=== PATIENT | female | born 2000 | race Caucasian/White ===

== ENCOUNTER → 2022-04-18 | Outpatient (CLI) | payer SELFPAY | LOC: LABNPT 15:47 | PROVIDERS: ATTEND Family Medicine | DX: Z34.83 Encounter for supervision of other normal pregnancy, third trimester (principal); Z3A.35 35 weeks gestation of pregnancy | CPT/HCPCS: 87081 ==

== ENCOUNTER 2022-05-21 18:12 | Inpatient (IN) | payer SELFPAY ==
[2022-05-21] VITALS (12 sets, daily range): BP systolic 112–141; BP diastolic 55–82
[~2022-05-21] VITALS: Ht 175 cm; Wt 82.3 kg
[2022-05-21 18:41] LABS: BILIRUBIN,URINE NEGATIVE (NEGATIVE); CLARITY,URINE CLEAR; COLOR,URINE YELLOW; GLUCOSE, URINE (UA) NEGATIVE (NEGATIVE); KETONES,URINE NEGATIVE (NEGATIVE); LEUKOCYTE ESTERASE ,URINE NEGATIVE (NEGATIVE); NITRITE,URINE NEGATIVE (NEGATIVE); PROTEIN,URINE NEGATIVE (NEGATIVE)
[2022-05-21 18:48] LABS: BACTERIA,URINE TRACE /HPF; RBC,URINE RARE /HPF; SQUAMOUS EPITHELIAL CELL,UR 0-2 /HPF; WBC,URINE 0-2 /HPF
[2022-05-21] MEDS ORDERED: AMPICILLIN FOR IV USE 2,000 MG in NS (IVPB) 50 ML IV SCH (18:52)
[2022-05-21] MEDS ORDERED: D5 LR IV SOLUTION 1,000 ML IV ONE (18:52)
[2022-05-21] MEDS ORDERED: D5 LR IV SOLUTION 1,000 ML IV SCH (19:00)
[2022-05-21] MEDS ORDERED: MINERAL OIL 30 ML UDC TOP PRN (19:00)
[2022-05-21 19:37] LABS: BASOPHILS % (AUTO) 0 % (0-10); EOSINOPHILS # (AUTO) 0.1 10^3/uL (0.0-0.3); EOSINOPHILS % (AUTO) 1 % (0-10); HEMATOCRIT 40 % (35-52); LYMPHOCYTES # (AUTO) 1.9 10^3/uL (1.0-4.0); LYMPHOCYTES % (AUTO) 18 % (12-44); MEAN CORPUSCULAR HEMOGLOBIN 32 pg (25-34); MEAN CORPUSCULAR HGB CONC 35 g/dL (32-36); MEAN CORPUSCULAR VOLUME 90 fL (80-99); MEAN PLATELET VOLUME 8.1 fL (9.0-12.2); MONOCYTES % (AUTO) 10 % (0-12); NEUTROPHILS # (AUTO) 7.4 10^3/uL (1.8-7.8); NEUTROPHILS % (AUTO) 71 % (42-75); PLATELET COUNT 200 10^3/uL (130-400); WHITE BLOOD COUNT 10.4 10^3/uL (4.3-11.0)
[2022-05-21] MEDS ORDERED: OXYTOCIN PRE-MIX DRIP 500 ML IV ONE ×2 (20:17→23:11)
[2022-05-21] MEDS ORDERED: LIDOCAINE/EPI 2% 1:200,00 (XYLOCAINE) 10 ML VIAL ONE (20:17)
--- NOTE | 2022-05-21 20:38 | History & Physical-OB ---
OB - Chief Complaint & HPI Date/Time Date of Admission: Date of Admission: May 21, 2022 at 18:54 Date seen by a Provider: May 21, 2022 Time Seen by a Provider: 20:30 Chief Complaint/History OB-Reason for Admission/Chief: Onset of Labor Hx : 1 Hx Para: 0 Expected Date of Delivery: May 21, 2022 Gestational Age in Weeks: 40 Gestational Age in Days: 0 Admission Nurse Assessment Rev: Yes History of Labs GBS Neg Allergies and Home Medications Allergies Coded Allergies: No Known Drug Allergies (Unverified , 05/21/22) Patient Home Medication List Home Medication List Reviewed: Yes OB - History Hx of Present Care: Yes (Dr Abbott thru [address] Wren) Obstetrical Complications: None Medical Complications: None Obstetrical History Hx : 1 Hx Para: 0 Hx Complication: No Patient Past Medical History None Denies Social History/Family History Alcohol Use: Denies Use Recreational Drug Use: No Smoking Cessation: Never smoker Immunizations Influenza Vaccine Up-to-Date: No; Not Current OB - Admission Exam Physical Exam Vitals: Vital Signs 05/21/22 18:28 Temp 36.3 Pulse 70 Resp 20 Pulse Ox 98 O2 Delivery Room Air HEENT: EOMI Heart: Rhythm Normal Lungs: Clear Abdomen: Gravid Extremities: Normal Cervical Dilatation: 7cm (per RN on admission) Effacement: 100% Station: 0 Membranes: Intact Heart Rate: 130's Accelerations: Accelerations Present Decelerations: No Decelerations Short Term Variability: Present 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 (6-25) Contractions on Admission: < 5 Minutes Apart Date/Time Contractions Began;: 05/21/22 around 1100 Intensity: Moderate Labs Laboratory Tests Test 05/21/22 18:20 05/21/22 19:00 Range/Units Urine Color YELLOW Urine Clarity CLEAR Urine pH 7.0 5-9 Urine Specific [place] 1.015 L 1.016-1.022 Urine Protein NEGATIVE NEGATIVE Urine Glucose (UA) NEGATIVE NEGATIVE Urine Ketones NEGATIVE NEGATIVE Urine Nitrite NEGATIVE NEGATIVE Urine Bilirubin NEGATIVE NEGATIVE Urine Urobilinogen 0.2 < = 1.0 MG/DL Urine Leukocyte Esterase NEGATIVE NEGATIVE Urine RBC (Auto) TRACE-I H NEGATIVE Urine RBC RARE /HPF Urine WBC 0-2 /HPF Urine Squamous Epithelial Cells 0-2 /HPF Urine Crystals NONE /LPF Urine Bacteria TRACE /HPF Urine Casts NONE /LPF Urine Mucus NEGATIVE /LPF Urine Culture Indicated CULTURE PENDING White Blood Count 10.4 4.3-11.0 10^3/uL Red Blood Count 4.42 3.80-5.11 10^6/uL Hemoglobin 14.0 11.5-16.0 g/dL Hematocrit 40 35-52 % Mean Corpuscular Volume 90 80-99 fL Mean Corpuscular Hemoglobin 32 25-34 pg Mean Corpuscular Hemoglobin Concent 35 32-36 g/dL Red Cell Distribution Width 12.5 10.0-14.5 % Platelet Count 200 130-400 10^3/uL Mean Platelet Volume 8.1 L 9.0-12.2 fL Immature Granulocyte % (Auto) 0 % Neutrophils (%) (Auto) 71 42-75 % Lymphocytes (%) (Auto) 18 12-44 % Monocytes (%) (Auto) 10 0-12 % Eosinophils (%) (Auto) 1 0-10 % Basophils (%) (Auto) 0 0-10 % Neutrophils # (Auto) 7.4 1.8-7.8 10^3/uL Lymphocytes # (Auto) 1.9 1.0-4.0 10^3/uL Monocytes # (Auto) 1.0 0.0-1.0 10^3/uL Eosinophils # (Auto) 0.1 0.0-0.3 10^3/uL Basophils # (Auto) 0.0 0.0-0.1 10^3/uL Immature Granulocyte # (Auto) 0.0 0.0-0.1 10^3/uL OB - Assessment/Plan/Diagnosis Assessment Assessment: active labor Admission Dx Term Labor Admission Status: Inpatient Order (span 2 midnights) Reason for Inpatient Admission: Term Labor with delivery expected Plan Plan: Expectant Management (Anticipate ) MAGGI BENNETT III, DO May 21, 2022 20:38
[2022-05-21] MEDS ORDERED: ONDANSETRON 4 MG/2 ML (SDV) Z0FRAN ONE (21:47)
[2022-05-21] MEDS ORDERED: ONDANSETRON 4 MG/2 ML (SDV) Z0FRAN IVP ONE (22:00)
[2022-05-21] MEDS ORDERED: CATHETER FLUSH 10 ML SYR IV SCH (22:00)
[2022-05-21] MEDS ORDERED: AMPICILLIN FOR IV USE 1,000 MG in NS (IVPB) 50 ML IV SCH (23:00)
--- NOTE | 2022-05-21 23:12 | OB Labor & Delivery Record ---
Vag Delivery Note Vag Delivery Note Date of Delivery: 05/21/22 Preoperative Diagnosis: Ina Solano is a (21 /Para 1 / 0, Gestational Age (wks)40with [] Postoperative Diagnosis: Same Surgeon: MAGGI BENNETT Dot Compliance Manager: [] Anesthesia: [Local 2% Lidociane] Delivery Type: Findings: [] Viable Male infant, apgars 8/9, weight 8#9oz 3885 gms Lacerations: Partial 3rd degree extension of episiotomy Intact placenta with 3 vessel cord. No nuchal cord, body cord or shoulder dystocia Estimated Blood Loss: 250 ml Complications: None Condition: Stable Description of Procedure: The patient is a 21 year old female who presented in active labor. She was admitted and informed consent was obtained. She progressed to complete dilatation and began to push. She was then set up for delivery. A tight band at the introitus indicated an episiotomy. The perineum and vaginal mucosa were infiltrated with 2% Lidocaine. A MLE was cut. The 's head was delivered atraumatically in the OA position. The shoulders and remainder of the 's body were then delivered without difficulty. Upon delivery, the head was held below the level of the perineum and the mouth and nares were bulb suctioned. The cord was doubly clamped after 1 minute and cut and the infant was handed off to the pediatric staff. An intact placenta with 3-vessel cord delivered and there was found to be minimal bleeding.~ Vigorous fundal massage was performed and the fundus was found to be firm. IV oxytocin was given. Examination of the vagina and perineum revealed a partial 3rd degree laceration repaired in the usual fashion with 2-0 Vicryl and the repainder with 3-0 vicryl suture. Following the repair, sponge, instrument and needle counts were correct. Mom and baby were both in stable condition in the labor suite. Vitals - Labs Vital Signs - I&O Vital Signs Date Time Temp Pulse Resp B/P (MAP) Pulse Ox O2 Delivery O2 Flow Rate FiO2 05/21/22 20:15 76 18 127/76 (93) Room Air 05/21/22 20:00 36.5 68 18 130/78 (95) Room Air 05/21/22 18:28 36.3 70 20 98 Room Air Labs Laboratory Tests 05/21/22 18:20: Urine Color YELLOW, Urine Clarity CLEAR, Urine pH 7.0, Urine Specific [place] 1.015L, Urine Protein NEGATIVE, Urine Glucose (UA) NEGATIVE, Urine Ketones NEGATIVE, Urine Nitrite NEGATIVE, Urine Bilirubin NEGATIVE, Urine Urobilinogen 0.2, Urine Leukocyte Esterase NEGATIVE, Urine RBC (Auto) TRACE-IH, Urine RBC RARE, Urine WBC 0-2, Urine Squamous Epithelial Cells 0-2, Urine Crystals NONE, Urine Bacteria TRACE, Urine Casts NONE, Urine Mucus NEGATIVE, Urine Culture Indicated CULTURE PENDING 05/21/22 19:00: White Blood Count 10.4, Red Blood Count 4.42, Hemoglobin 14.0, Hematocrit 40, Mean Corpuscular Volume 90, Mean Corpuscular Hemoglobin 32, Mean Corpuscular Hemoglobin Concent 35, Red Cell Distribution Width 12.5, Platelet Count 200, Mean Platelet Volume 8.1L, Immature Granulocyte % (Auto) 0, Neutrophils (%) (Auto) 71, Lymphocytes (%) (Auto) 18, Monocytes (%) (Auto) 10, Eosinophils (%) (Auto) 1, Basophils (%) (Auto) 0, Neutrophils # (Auto) 7.4, Lymphocytes # (Auto) 1.9, Monocytes # (Auto) 1.0, Eosinophils # (Auto) 0.1, Basophils # (Auto) 0.0, Immature Granulocyte # (Auto) 0.0 MAGGI BENNETT III, DO May 21, 2022 23:12
[2022-05-21] MEDS ORDERED: OXYTOCIN PRE-MIX DRIP 500 ML IV SCH (23:15)
[2022-05-21] MEDS ORDERED: BENZOCAINE/MENTHOL (DERMOPLAST) 56 ML CAN TP PRN (23:15)
[2022-05-21] MEDS ORDERED: TETANUS,DIPTH,PERTUSS P/F (BOOSTRIX) 0.5 ML VIAL IM ONE (23:15)
[2022-05-21] MEDS ORDERED: WITCH HAZEL(TUCKS) 40 EA JAR TOP PRN (23:15)
[2022-05-22] VITALS (19 sets, daily range): BP systolic 75–128; BP diastolic 42–75
[2022-05-22] MEDS: IBUPROFEN 600 MG (MOTRIN) TAB PO SCH ×4 (00:03→18:05)
[2022-05-22] MEDS ORDERED: OXYTOCIN PRE-MIX DRIP 500 ML IV SCH (00:45)
[2022-05-22] MEDS ORDERED: LIDOCAINE/EPI 2% 1:100,00 (XYLOCAINE) 20 ML VIAL INJ ONE (00:45)
[2022-05-22 05:28] LABS: BASOPHILS % (AUTO) 0 % (0-10); EOSINOPHILS % (AUTO) 0 % (0-10); HEMATOCRIT 38 % (35-52); LYMPHOCYTES # (AUTO) 1.8 10^3/uL (1.0-4.0); LYMPHOCYTES % (AUTO) 12 % (12-44); MEAN CORPUSCULAR HEMOGLOBIN 32 pg (25-34); MEAN CORPUSCULAR HGB CONC 35 g/dL (32-36); MEAN CORPUSCULAR VOLUME 91 fL (80-99); MONOCYTES # (AUTO) 1.6 10^3/uL (0.0-1.0); MONOCYTES % (AUTO) 11 % (0-12); NEUTROPHILS # (AUTO) 11.3 10^3/uL (1.8-7.8); NEUTROPHILS % (AUTO) 77 % (42-75); PLATELET COUNT 176 10^3/uL (130-400); WHITE BLOOD COUNT 14.7 10^3/uL (4.3-11.0)
[2022-05-22] MEDS ORDERED: CATHETER FLUSH 10 ML SYR IV SCH (06:00)
--- NOTE | 2022-05-22 07:35 | Postpartum Progress Note ---
Note Note Day # 1 Subjective: Patient is without complaints. Ambulating, voiding. Tolerating a regular diet without nausea or vomiting. Normal lochia. Pain is well controlled with oral pain medications. Breast feeding. Laboratory Tests Test 05/21/22 18:20 05/21/22 19:00 05/22/22 05:19 Range/Units Urine Color YELLOW Urine Clarity CLEAR Urine pH 7.0 5-9 Urine Specific [place] 1.015 L 1.016-1.022 Urine Protein NEGATIVE NEGATIVE Urine Glucose (UA) NEGATIVE NEGATIVE Urine Ketones NEGATIVE NEGATIVE Urine Nitrite NEGATIVE NEGATIVE Urine Bilirubin NEGATIVE NEGATIVE Urine Urobilinogen 0.2 < = 1.0 MG/DL Urine Leukocyte Esterase NEGATIVE NEGATIVE Urine RBC (Auto) TRACE-I H NEGATIVE Urine RBC RARE /HPF Urine WBC 0-2 /HPF Urine Squamous Epithelial Cells 0-2 /HPF Urine Crystals NONE /LPF Urine Bacteria TRACE /HPF Urine Casts NONE /LPF Urine Mucus NEGATIVE /LPF Urine Culture Indicated CULTURE PENDING White Blood Count 10.4 14.7 H 4.3-11.0 10^3/uL Red Blood Count 4.42 4.11 3.80-5.11 10^6/uL Hemoglobin 14.0 13.0 11.5-16.0 g/dL Hematocrit 40 38 35-52 % Mean Corpuscular Volume 90 91 80-99 fL Mean Corpuscular Hemoglobin 32 32 25-34 pg Mean Corpuscular Hemoglobin Concent 35 35 32-36 g/dL Red Cell Distribution Width 12.5 12.6 10.0-14.5 % Platelet Count 200 176 130-400 10^3/uL Mean Platelet Volume 8.1 L 8.0 L 9.0-12.2 fL Immature Granulocyte % (Auto) 0 1 % Neutrophils (%) (Auto) 71 77 H 42-75 % Lymphocytes (%) (Auto) 18 12 12-44 % Monocytes (%) (Auto) 10 11 0-12 % Eosinophils (%) (Auto) 1 0 0-10 % Basophils (%) (Auto) 0 0 0-10 % Neutrophils # (Auto) 7.4 11.3 H 1.8-7.8 10^3/uL Lymphocytes # (Auto) 1.9 1.8 1.0-4.0 10^3/uL Monocytes # (Auto) 1.0 1.6 H 0.0-1.0 10^3/uL Eosinophils # (Auto) 0.1 0.0 0.0-0.3 10^3/uL Basophils # (Auto) 0.0 0.0 0.0-0.1 10^3/uL Immature Granulocyte # (Auto) 0.0 0.1 0.0-0.1 10^3/uL Objective: VSS H/H good Physical Exam: General - Alert and oriented, no apparent distress Abdomen - Soft, appropriately tender to palpation, non-distended, fundus firm at umbilicus Extremities - no edema, negative Randal's bilaterally Assessment: Post- day # 1, status post spontaneous vaginal delivery with partial 3rd degree. Recovering well, hemodynamically stable Plan: Routine care. Encourage breast feeding. Encourage ambulation. Ferrous sulfate supplementation. Plan for discharge Tomorrow Vitals - Labs Vital Signs - I&O Vital Signs Date Time Temp Pulse Resp B/P (MAP) Pulse Ox O2 Delivery O2 Flow Rate FiO2 05/22/22 05:00 37.0 87 18 128/64 (85) 96 Room Air 05/22/22 00:43 36.6 75 18 112/56 (74) Room Air 05/22/22 00:27 71 18 117/62 (80) Room Air 05/22/22 00:12 74 18 111/59 (76) Room Air 05/21/22 23:58 78 18 115/55 (75) Room Air 05/21/22 23:28 75 18 121/66 (84) Room Air 05/21/22 23:14 80 18 122/67 (85) Room Air 05/21/22 23:05 91 18 112/72 (85) Room Air 05/21/22 22:45 82 18 121/59 (79) Room Air 05/21/22 22:05 77 18 141/74 (96) Room Air 05/21/22 22:00 81 18 126/69 (88) Room Air 05/21/22 21:05 72 18 125/75 (92) Room Air 05/21/22 21:00 76 18 133/82 (99) Room Air 05/21/22 20:15 76 18 127/76 (93) Room Air 05/21/22 20:00 36.5 68 18 130/78 (95) Room Air 10/9/22 18:28 36.3 70 20 98 Room Air I & O 05/22/22 07:00 Intake Total 1000 ml Balance 1000 ml Labs Laboratory Tests 05/21/22 18:20: Urine Color YELLOW, Urine Clarity CLEAR, Urine pH 7.0, Urine Specific [place] 1.015L, Urine Protein NEGATIVE, Urine Glucose (UA) NEGATIVE, Urine Ketones NEGATIVE, Urine Nitrite NEGATIVE, Urine Bilirubin NEGATIVE, Urine Urobilinogen 0.2, Urine Leukocyte Esterase NEGATIVE, Urine RBC (Auto) TRACE-IH, Urine RBC RARE, Urine WBC 0-2, Urine Squamous Epithelial Cells 0-2, Urine Crystals NONE, Urine Bacteria TRACE, Urine Casts NONE, Urine Mucus NEGATIVE, Urine Culture Indicated CULTURE PENDING 05/21/22 19:00: White Blood Count 10.4, Red Blood Count 4.42, Hemoglobin 14.0, Hematocrit 40, Mean Corpuscular Volume 90, Mean Corpuscular Hemoglobin 32, Mean Corpuscular Hemoglobin Concent 35, Red Cell Distribution Width 12.5, Platelet Count 200, Mean Platelet Volume 8.1L, Immature Granulocyte % (Auto) 0, Neutrophils (%) (Aut o) 71, Lymphocytes (%) (Auto) 18, Monocytes (%) (Auto) 10, Eosinophils (%) (Auto) 1, Basophils (%) (Auto) 0, Neutrophils # (Auto) 7.4, Lymphocytes # (Auto) 1.9, Monocytes # (Auto) 1.0, Eosinophils # (Auto) 0.1, Basophils # (Auto) 0.0, Immature Granulocyte # (Auto) 0.0 05/22/22 05:19: White Blood Count 14.7H, Red Blood Count 4.11, Hemoglobin 13.0, Hematocrit 38, Mean Corpuscular Volume 91, Mean Corpuscular Hemoglobin 32, Mean Corpuscular Hemoglobin Concent 35, Red Cell Distribution Width 12.6, Platelet Count 176, Mean Platelet Volume 8.0L, Immature Granulocyte % (Auto) 1, Neutrophils (%) (Auto) 77H, Lymphocytes (%) (Auto) 12, Monocytes (%) (Auto) 11, Eosinophils (%) (Auto) 0, Basophils (%) (Auto) 0, Neutrophils # (Auto) 11.3H, Lymphocytes # (Auto) 1.8, Monocytes # (Auto) 1.6H, Eosinophils # (Auto) 0.0, Basophils # (Auto) 0.0, Immature Granulocyte # (Auto) 0.1 MAGGI BENNETT III, DO May 22, 2022 07:35
[2022-05-22] MEDS: PRENATAL VITAMIN 1 EA TAB PO SCH (08:56)
[2022-05-22] MEDS: DOCUSATE SODIUM 100 MG (COLACE) CAP PO SCH (08:56)
[2022-05-22] MEDS ORDERED: METHYLERGONOVINE 0.2 MG/ML (METHERGINE) AMP ONE ×2 (19:42→20:01)
[2022-05-22] MEDS ORDERED: METHYLERGONOVINE 0.2 MG/ML (METHERGINE) AMP IM ONE ×2 (19:45→20:30)
[2022-05-22 19:59] LABS: BASOPHILS % (AUTO) 0 % (0-10); EOSINOPHILS # (AUTO) 0.1 10^3/uL (0.0-0.3); EOSINOPHILS % (AUTO) 1 % (0-10); HEMATOCRIT 29 % (35-52); HEMOGLOBIN 10.3 g/dL (11.5-16.0); LYMPHOCYTES # (AUTO) 2.2 10^3/uL (1.0-4.0); LYMPHOCYTES % (AUTO) 21 % (12-44); MEAN CORPUSCULAR HEMOGLOBIN 32 pg (25-34); MEAN CORPUSCULAR HGB CONC 35 g/dL (32-36); MEAN CORPUSCULAR VOLUME 92 fL (80-99); MEAN PLATELET VOLUME 8.4 fL (9.0-12.2); MONOCYTES # (AUTO) 1.2 10^3/uL (0.0-1.0); MONOCYTES % (AUTO) 12 % (0-12); NEUTROPHILS # (AUTO) 6.7 10^3/uL (1.8-7.8); NEUTROPHILS % (AUTO) 66 % (42-75); PLATELET COUNT 175 10^3/uL (130-400); WHITE BLOOD COUNT 10.3 10^3/uL (4.3-11.0)
--- NOTE | 2022-05-22 21:38 | Diagnostic Imaging Report ---
TECHNIQUE: Live grayscale and color Doppler ultrasound was performed transabdominally of the pelvis. COMPARISON: None. INDICATION: Recent delivery. Evaluate for retained placenta. FINDINGS: The uterus is retroverted and measures 18.3 x 8.9 x 10.5 cm. There is a heterogeneous appearance of the endometrium measuring 2.0 cm in thickness. No retained placenta is identified. The ovaries are not visualized due to overlying bowel gas. No adnexal mass. No free fluid is seen. IMPRESSION: No sonographic evidence of retained placenta in the endometrium. Recommend continued follow-up as indicated. Dictated by: Dictated on workstation # [id number]
[2022-05-23] MEDS: DOCUSATE SODIUM 100 MG (COLACE) CAP PO SCH ×2 (00:45→08:45)
[2022-05-23 00:50] VITALS: BP 109/63
[2022-05-23] MEDS: IBUPROFEN 600 MG (MOTRIN) TAB PO SCH ×4 (00:54→16:00)
[2022-05-23 03:20] VITALS: BP 110/66
[2022-05-23 07:09] LABS: BASOPHILS % (AUTO) 0 % (0-10); EOSINOPHILS % (AUTO) 0 % (0-10); HEMATOCRIT 26 % (35-52); HEMOGLOBIN 8.9 g/dL (11.5-16.0); LYMPHOCYTES % (AUTO) 20 % (12-44); MEAN CORPUSCULAR HEMOGLOBIN 32 pg (25-34); MEAN CORPUSCULAR HGB CONC 35 g/dL (32-36); MEAN CORPUSCULAR VOLUME 91 fL (80-99); MEAN PLATELET VOLUME 8.2 fL (9.0-12.2); MONOCYTES % (AUTO) 9 % (0-12); NEUTROPHILS # (AUTO) 7.2 10^3/uL (1.8-7.8); NEUTROPHILS % (AUTO) 70 % (42-75); PLATELET COUNT 162 10^3/uL (130-400); WHITE BLOOD COUNT 10.3 10^3/uL (4.3-11.0)
[2022-05-23] MEDS ORDERED: LACTATED RINGERS 1,000 ML IV ONE (08:00)
--- NOTE | 2022-05-23 08:05 | Progress Note ---
Standard Progress Note Progress Notes/Assess & Plan Date Seen by a Provider: May 23, 2022 Time Seen by a Provider: 08:01 Progress/Assessment & Plan This patient is a 21-year-old 1 now para 1 female who had an apparently uneventful vaginal delivery on May 21, 2021 near midnight. Her recovery was uneventful until last evening. I was called at about 8 PM due to significant increase in her bleeding. With clots some apparent uterine atony and blood loss approaching 1000 cc. She responded only minimally to vigorous massage. But she did respond well to 2 doses of Methergine. Ultrasound was obtained to evaluate for retained placental tissue and that was negative. Patient bleeding came under control nicely shortly after the second dose of Methergine last evening. Patient has been stable through the night although she does appear to experience significant vasovagal syncope on trying to ambulate. Hemoglobin on admission was about 14 hemoglobin around the time of delivery was 10.4 hemoglobin last evening when her bleeding was a problem was about 10.3 hemoglobin this morning is 8.4. Plan now is to give some IV fluids and supportive care and then reevaluate for anemia that might warrant intervention such as a blood transfusion. Patient has been experiencing nausea and vomiting that seems to be associated with decreased blood pressure and decreased pulse which likely is related to vasovagal effect. Again we will see what the effect of hydration has on her symptoms. At this point we will continue inpatient monitoring and supportive care Laboratory Tests Test 05/22/22 19:55 05/23/22 07:02 Range/Units White Blood Count 10.3 10.3 4.3-11.0 10^3/uL Red Blood Count 3.19 L 2.80 L 3.80-5.11 10^6/uL Hemoglobin 10.3 #L 8.9 L 11.5-16.0 g/dL Hematocrit 29 L 26 L 35-52 % Mean Corpuscular Volume 92 91 80-99 fL Mean Corpuscular Hemoglobin 32 32 25-34 pg Mean Corpuscular Hemoglobin Concent 35 35 32-36 g/dL Red Cell Distribution Width 12.8 12.8 10.0-14.5 % Platelet Count 175 162 130-400 10^3/uL Mean Platelet Volume 8.4 L 8.2 L 9.0-12.2 fL Immature Granulocyte % (Auto) 0 0 % Neutrophils (%) (Auto) 66 70 42-75 % Lymphocytes (%) (Auto) 21 20 12-44 % Monocytes (%) (Auto) 12 9 0-12 % Eosinophils (%) (Auto) 1 0 0-10 % Basophils (%) (Auto) 0 0 0-10 % Neutrophils # (Auto) 6.7 7.2 1.8-7.8 10^3/uL Lymphocytes # (Auto) 2.2 2.0 1.0-4.0 10^3/uL Monocytes # (Auto) 1.2 H 1.0 0.0-1.0 10^3/uL Eosinophils # (Auto) 0.1 0.0 0.0-0.3 10^3/uL Basophils # (Auto) 0.0 0.0 0.0-0.1 10^3/uL Immature Granulocyte # (Auto) 0.0 0.0 0.0-0.1 10^3/uL Vital Signs Date Time Temp Pulse Resp B/P (MAP) Pulse Ox O2 Delivery O2 Flow Rate FiO2 05/23/22 03:20 35.9 103 18 110/66 (81) 98 Room Air 05/23/22 00:50 36.4 114 18 109/63 (78) 98 Room Air 05/22/22 22:04 96 18 107/67 (80) 99 Room Air 05/22/22 21:04 102 18 104/67 (79) 100 Room Air 05/22/22 20:33 104 18 105/65 (78) 100 Room Air 05/22/22 20:20 87 18 103/64 (77) 100 Room Air 05/22/22 20:12 101 18 100/61 (74) 99 Room Air 05/22/22 20:08 104 18 96/61 (73) 99 Room Air 05/22/22 20:01 96 18 100/64 (76) 99 Room Air 05/22/22 19:58 109 18 84/45 (58) 99 Room Air 05/22/22 19:57 116 18 75/46 (56) Room Air 05/22/22 19:56 36.5 121 18 76/42 (53) Room Air 05/22/22 19:52 131 18 81/53 (62) Room Air 05/22/22 19:45 131 18 102/57 (72) Room Air 05/22/22 16:00 36.7 79 18 117/56 (76) 99 Room Air 05/22/22 12:16 36.6 05/22/22 12:15 36.6 75 18 115/75 (88) 97 Room Air 05/22/22 09:00 37.1 64 18 107/55 (72) 97 Room Air Vital signs are stable patient is afebrile Fundus is firm below the umbilicus and nontender Extremities show no clubbing or cyanosis. Homans' sign. Assessment and plan Post day #2 status post term spontaneous vaginal delivery doing relatively well. She does have a significant episode of bleeding not quite 24 hours after her delivery. That resolved with medical management. Ultrasound demonstrated no significant concern for retained products. Patient is anemic with a hemoglobin now under 9. She may also be somewhat dehydrated as well after period of hydration we will recheck her hemoglobin. If she continues to be unable to ambulate due to anemia/severe anemia and we will discuss treatment alternatives including observation versus iron supplementation versus blood transfusion. Not feel patient is quite ready for considering for discharge home just yet. We will continue observation and supportive management through the day MARILU MARIE MD May 23, 2022 08:05
[2022-05-23 08:45] VITALS: BP 117/55
[2022-05-23] MEDS: PRENATAL VITAMIN 1 EA TAB PO SCH (08:45)
[2022-05-23 12:30] VITALS: BP 111/56
[2022-05-23 16:00] VITALS: BP 114/56
[2022-05-23 16:15] LABS: BASOPHILS % (AUTO) 0 % (0-10); EOSINOPHILS % (AUTO) 0 % (0-10); HEMATOCRIT 24 % (35-52); HEMOGLOBIN 8.2 g/dL (11.5-16.0); LYMPHOCYTES % (AUTO) 20 % (12-44); MEAN CORPUSCULAR HEMOGLOBIN 32 pg (25-34); MEAN CORPUSCULAR HGB CONC 35 g/dL (32-36); MEAN CORPUSCULAR VOLUME 93 fL (80-99); MEAN PLATELET VOLUME 8.4 fL (9.0-12.2); MONOCYTES # (AUTO) 0.9 10^3/uL (0.0-1.0); MONOCYTES % (AUTO) 9 % (0-12); NEUTROPHILS # (AUTO) 6.9 10^3/uL (1.8-7.8); NEUTROPHILS % (AUTO) 70 % (42-75); PLATELET COUNT 162 10^3/uL (130-400); WHITE BLOOD COUNT 9.8 10^3/uL (4.3-11.0)
--- NOTE | 2022-05-23 17:24 | Progress Note ---
Standard Progress Note Progress Notes/Assess & Plan Date Seen by a Provider: May 23, 2022 Time Seen by a Provider: 17:22 Progress/Assessment & Plan This patient is a 21-year-old 1 now para 1 female who had an apparently uneventful vaginal delivery on May 21, 2021 near midnight. Her recovery was uneventful until last evening. I was called at about 8 PM due to significant increase in her bleeding. With clots some apparent uterine atony and blood loss approaching 1000 cc. She responded only minimally to vigorous massage. But she did respond well to 2 doses of Methergine. Ultrasound was obtained to evaluate for retained placental tissue and that was negative. Patient bleeding came under control nicely shortly after the second dose of Methergine last evening. Patient has been stable through the night although she does appear to experience significant vasovagal syncope on trying to ambulate. Hemoglobin on admission was about 14 hemoglobin around the time of delivery was 10.4 hemoglobin last evening when her bleeding was a problem was about 10.3 hemoglobin this morning is 8.4. Plan now is to give some IV fluids and supportive care and then reevaluate for anemia that might warrant intervention such as a blood transfusion. Patient has been experiencing nausea and vomiting that seems to be associated with decreased blood pressure and decreased pulse which likely is related to vasovagal effect. Again we will see what the effect of hydration has on her symptoms. At this point we will continue inpatient monitoring and supportive care Laboratory Tests Test 05/22/22 19:55 05/23/22 07:02 Range/Units White Blood Count 10.3 10.3 4.3-11.0 10^3/uL Red Blood Count 3.19 L 2.80 L 3.80-5.11 10^6/uL Hemoglobin 10.3 #L 8.9 L 11.5-16.0 g/dL Hematocrit 29 L 26 L 35-52 % Mean Corpuscular Volume 92 91 80-99 fL Mean Corpuscular Hemoglobin 32 32 25-34 pg Mean Corpuscular Hemoglobin Concent 35 35 32-36 g/dL Red Cell Distribution Width 12.8 12.8 10.0-14.5 % Platelet Count 175 162 130-400 10^3/uL Mean Platelet Volume 8.4 L 8.2 L 9.0-12.2 fL Immature Granulocyte % (Auto) 0 0 % Neutrophils (%) (Auto) 66 70 42-75 % Lymphocytes (%) (Auto) 21 20 12-44 % Monocytes (%) (Auto) 12 9 0-12 % Eosinophils (%) (Auto) 1 0 0-10 % Basophils (%) (Auto) 0 0 0-10 % Neutrophils # (Auto) 6.7 7.2 1.8-7.8 10^3/uL Lymphocytes # (Auto) 2.2 2.0 1.0-4.0 10^3/uL Monocytes # (Auto) 1.2 H 1.0 0.0-1.0 10^3/uL Eosinophils # (Auto) 0.1 0.0 0.0-0.3 10^3/uL Basophils # (Auto) 0.0 0.0 0.0-0.1 10^3/uL Immature Granulocyte # (Auto) 0.0 0.0 0.0-0.1 10^3/uL Vital Signs Date Time Temp Pulse Resp B/P (MAP) Pulse Ox O2 Delivery O2 Flow Rate FiO2 05/23/22 03:20 35.9 103 18 110/66 (81) 98 Room Air 05/23/22 00:50 36.4 114 18 109/63 (78) 98 Room Air 05/22/22 22:04 96 18 107/67 (80) 99 Room Air 05/22/22 21:04 102 18 104/67 (79) 100 Room Air 05/22/22 20:33 104 18 105/65 (78) 100 Room Air 05/22/22 20:20 87 18 103/64 (77) 100 Room Air 05/22/22 20:12 101 18 100/61 (74) 99 Room Air 05/22/22 20:08 104 18 96/61 (73) 99 Room Air 05/22/22 20:01 96 18 100/64 (76) 99 Room Air 05/22/22 19:58 109 18 84/45 (58) 99 Room Air 05/22/22 19:57 116 18 75/46 (56) Room Air 05/22/22 19:56 36.5 121 18 76/42 (53) Room Air 05/22/22 19:52 131 18 81/53 (62) Room Air 05/22/22 19:45 131 18 102/57 (72) Room Air 05/22/22 16:00 36.7 79 18 117/56 (76) 99 Room Air 05/22/22 12:16 36.6 05/22/22 12:15 36.6 75 18 115/75 (88) 97 Room Air 05/22/22 09:00 37.1 64 18 107/55 (72) 97 Room Air Vital signs are stable patient is afebrile Fundus is firm below the umbilicus and nontender Extremities show no clubbing or cyanosis. Homans' sign. Assessment and plan Post day #2 status post term spontaneous vaginal delivery doing relatively well. She does have a significant episode of bleeding not quite 24 hours after her delivery. That resolved with medical management. Ultrasound demonstrated no significant concern for retained products. Patient is anemic with a hemoglobin now under 9. She may also be somewhat dehydrated as well after period of hydration we will recheck her hemoglobin. If she continues to be unable to ambulate due to anemia/severe anemia and we will discuss treatment alternatives including observation versus iron supplementation versus blood transfusion. Not feel patient is quite ready for considering for discharge home just yet. We will continue observation and supportive management through the day This patient has been stable through the day. She is now ambulating, voiding, tolerating oral intake. She feels minimal dizziness or lightheadedness. She feels ready for discharge home. Her hemoglobin has been stable on serial exams since last evening. She currently is a little bit over 8 on her hemoglobin. Patient is requesting discharge home and is determined she can be discharged home. Vital Signs Date Time Temp Pulse Resp B/P (MAP) Pulse Ox O2 Delivery O2 Flow Rate FiO2 05/23/22 16:00 37.0 100 18 114/56 (75) 97 Room Air 05/23/22 12:30 36.9 120 18 111/56 (74) 97 Room Air 05/23/22 08:45 36.6 92 18 117/55 (75) 98 Room Air 05/23/22 03:20 35.9 103 18 110/66 (81) 98 Room Air 05/23/22 00:50 36.4 114 18 109/63 (78) 98 Room Air 05/22/22 22:04 96 18 107/67 (80) 99 Room Air 05/22/22 21:04 102 18 104/67 (79) 100 Room Air 05/22/22 20:33 104 18 105/65 (78) 100 Room Air 05/22/22 20:20 87 18 103/64 (77) 100 Room Air 05/22/22 20:12 101 18 100/61 (74) 99 Room Air 05/22/22 20:08 104 18 96/61 (73) 99 Room Air 05/22/22 20:01 96 18 100/64 (76) 99 Room Air 05/22/22 19:58 109 18 84/45 (58) 99 Room Air 05/22/22 19:57 116 18 75/46 (56) Room Air 05/22/22 19:56 36.5 121 18 76/42 (53) Room Air 05/22/22 19:52 131 18 81/53 (62) Room Air 05/22/22 19:45 131 18 102/57 (72) Room Air Vital signs are stable. Patient is afebrile. Physical exam is deferred Assessment and plan day #2 status post term spontaneous vaginal delivery doing well. Plans for discharge home with follow-up in clinic. Patient is advised to take supplemental iron. Patient declines any pain medications but knows that she can take [id number] nonsteroidal pain medication if desired Final Diagnosis Term spontaneous vaginal delivery At 40 weeks gestation MARILU MARIE MD May 23, 2022 17:24
--- NOTE | 2022-05-23 17:26 | Discharge Inst-Surgical ---
Discharge Inst-Surgical Depart Medication/Instructions New, Converted or Re-Newed RX: Other Consults/Follow Up Patient Instructions: As directed Orders & Referrals Follow Up Appt: Call to make follow up appt. for patient in [address] Abbott Return to clinic promptly for any signs symptoms or indications of significant side effects from anemia Activity Per routine post vaginal delivery instructions. May take [id number] pain medications May take [id number] iron supplement Diet as tolerated Patient may shower or tub bathe as desired. Activity Activity as Tolerated: No Diet Discharge Diet: No Restrictions MARILU MARIE MD May 23, 2022 17:26
== END 2022-05-23 18:40 | disposition home or self-care (01) | DRG 768 ==
LOC: LDRP 18:12 → WSo 18:12 → LDRP 18:54 → WSo 18:54 → LDRP 05-22 01:10
PROVIDERS: ADMIT Obstetrics & Gynecology; ATTEND Obstetrics & Gynecology
PROC: 10E0XZZ Delivery of Products of Conception, External Approach (ICD-10-PCS; principal; 2022-05-21)
PROC: 0DQR0ZZ Repair Anal Sphincter, Open Approach (ICD-10-PCS; 2022-05-21)
DX: O70.20 Third degree perineal laceration during delivery, unspecified (principal); Z37.0 Single live birth; D62 Acute posthemorrhagic anemia; Z3A.40 40 weeks gestation of pregnancy; O90.81 Anemia of the puerperium; E86.0 Dehydration; O99.893 Other specified diseases and conditions complicating puerperium
CPT/HCPCS: 36415; 76815; 81000; 85025; 85027; 86780; 86850; 86900; 86901; 86920; 87088; 99212